=== PATIENT | male | born 1945 | race Caucasian/White ===

== ENCOUNTER 2023-11-18 06:51 | Outpatient (CLI) | payer OTHER | END 2023-11-18 18:32 | disposition home or self-care (01) | LOC: SNM 06:51 | PROVIDERS: ATTEND Orthopaedic Surgery | DX: M25.561 Pain in right knee (principal); M25.562 Pain in left knee; Z96.651 Presence of right artificial knee joint; Z96.652 Presence of left artificial knee joint | CPT/HCPCS: 78315; A9503 ==